=== PATIENT | female | born 1955 | race African-American/Black ===

== ENCOUNTER → 2016-09-06 | Day surgery (SDC) | payer OTHER ==
[~2016-09-06] MED LIST: ALBUTEROL17 GM; ASPIRIN81 M2 PO; BREO ELLIPTA I1 EACH INH; BUMEX1 MG PO; CARVEDILOL25 M1; CLARITIN10 M3; CLOPIDOGREL BIS75 MG PO; FLONASE ALLERG9.9 ML; K-DUR20 ME1; LEVOTHYROXINE100 MCG PO; LIPITOR40 MG PO; MONTELUKAST SOD10 MG PO; PANTOPRAZOLE SO40 MG PO; SYMBICORT 160/4.6 G1 INH; VENLAFAXINE HCL75 M1 PO
--- NOTE | ~2016-09-06 | OR ---
Unit #: [id number] #: [id number] Patient: MERCEDES WALDRON [id number] [address] [place], [place] [address] [id number] O MR#: [id number] NAME: MERCEDES WALDRON ROOM: Date of Procedure: 09/06/2016 Admission Date: 09/06/2016 Surgeon: Ziggy Jensen M.D. : 1955 Attending Physician: Ziggy Jensen M.D. Primary Care Physician: Yasmin Primary Care Physician PROCEDURE OPERATIVE NOTE PROCEDURE PERFORMED Colonoscopy to the cecum. INDICATION Average risk for colorectal cancer. MEDICATION Monitored anesthesia. POSTOP FINDINGS 1. Polyp transverse colon, 5 mm, snared and removed for pathology. 2. Rest of the exam was normal. PLAN Follow up on the pathology report. If adenomatous, repeat colonoscopy in 5 years. DESCRIPTION OF PROCEDURE The patient was explained the procedure risks and benefits, along with the risk and benefits of anesthesia. She was brought to the endoscopy room. Propofol anesthesia was given. Rectal exam was done, which was normal. Colonoscope was lubricated and passed through the rectum and advanced under direction vision all the way to the cecum. The cecum was identified by the ileocecal valve and appendiceal orifice. Polyp seen in the transverse colon was snared and sent to pathology. I retroflexed in the rectum. Small hemorrhoid seen. Gently the scope was pulled out. She tolerated it well. No immediate complications were seen. Dictated by... Lor Delong/gera TD: 09/06/2016 11:47 JOB #: [id number] CC: Delmis Centeno M.D. Unit #: [id number] #: [id number] Patient: MERCEDES WALDRON PROCEDURE OPERATIVE NOTE Page 1 of 1 X Ziggy Jensen MD X PROCEDURE OPERATIVE NOTE
== END | disposition home or self-care (01) ==
LOC: COPS 08:01
DX: Z12.11 Encounter for screening for malignant neoplasm of colon (principal); K63.5 Polyp of colon; K21.9 Gastro-esophageal reflux disease without esophagitis; J43.9 Emphysema, unspecified; F17.210 Nicotine dependence, cigarettes, uncomplicated; Z88.0 Allergy status to penicillin; Z91.040 Latex allergy status; Z79.82 Long term (current) use of aspirin; Z79.899 Other long term (current) drug therapy
CPT/HCPCS: 88305; J2250